=== PATIENT | male | born 1995 | race Caucasian/White ===

== ENCOUNTER 2019-07-20 13:55 | Emergency (ER) | payer SELFPAY ==
[2019-07-20] MEDS ORDERED: Morphine 10 MG/ML VIAL ONE (14:26)
--- NOTE | 2019-07-20 14:35 | RAD ---
LEFT HAND 3 VIEWS: Date: 07/20/2019 HISTORY: Crush injury, pain fifth digit of left hand. FINDINGS/IMPRESSION: There is a mildly displaced fracture involving the tuft of the distal phalanx of the fifth digit of t he left hand. POS: [id number]
[2019-07-20] MEDS ORDERED: Lidocaine 1% PF 5 ML VIAL ONE (15:01)
[2019-07-20] MEDS ORDERED: CEFAZOLIN 1 GM VIAL ONE (15:01)
[2019-07-20] MEDS ORDERED: Bacitracin 1 PK ONE (16:22)
== END 2019-07-20 17:30 | disposition home or self-care (01) ==
LOC: ERS 13:55
DX: S62.637A Displaced fracture of distal phalanx of left little finger, initial encounter for closed fracture (principal); S61.217A Laceration without foreign body of left little finger without damage to nail, initial encounter; W23.0XXA Caught, crushed, jammed, or pinched between moving objects, initial encounter
CPT/HCPCS: 12001; 96372; 96374; J0690; J2001; J2270